=== PATIENT | male | born 1990 | race Two or more races ===

== ENCOUNTER 2024-08-17 16:28 | Emergency (ER) | payer OTHER ==
[~2024-08-17] VITALS: Ht 162.6 cm; Wt 64.0 kg
[2024-08-17] MEDS ORDERED: LIDOCAINE 1% HCL (LOCAL ANESTH.) INJ 20ML MDV ONE (17:14)
[2024-08-17 17:18] VITALS: BP 125/76; PULSE 120; RESP 16; TEMP 99; O2SAT 96
[2024-08-17] MEDS: LIDOCAINE 1% HCL (LOCAL ANESTH.) INJ 20ML MDV IJ ONE (17:22)
[2024-08-17] MEDS: TETANUS-DIPTH-ACEL PERTUSSIS 0.5ML SYR Tdap IM ONE (17:22)
[2024-08-17] MEDS ORDERED: CEPH500C PO (17:29)
== END 2024-08-17 17:46 | disposition home or self-care (01) ==
LOC: ER 16:28
DX: S51.812A Laceration without foreign body of left forearm, initial encounter (principal); W26.8XXA Contact with other sharp object(s), not elsewhere classified, initial encounter; Y93.89 Activity, other specified; Y92.89 Other specified places as the place of occurrence of the external cause; Y99.8 Other external cause status
CPT/HCPCS: 12001; 99283; J2003; 90715